=== PATIENT | male | born 2000 | race American Indian/Alaskan Native ===

== ENCOUNTER 2020-09-27 17:28 | Emergency (ER) | payer MEDICAID ==
[2020-09-27 20:11] VITALS: BP 130/69
[2020-09-27] MEDS ORDERED: TETANUS,DIPH,PERTUSS(ACELL) VACCINE 0.5 ML SYRINGE IM ONE (20:36)
--- NOTE | 2020-09-27 22:00 | Emergency Department Report ---
ED Lower Extremity HPI - General Chief Complaint: Extremity Injury, Lower Stated Complaint: WORK INJURY/RT BIG TOE Time Seen by Provider: 09/27/20 20:36 Source: patient Mode of arrival: Ambulatory Limitations: No Limitations - History of Present Illness Initial Comments: Patient is a 19-year-old male who presents emergency room complaints of stepping on a nail to his right great toe that occurred earlier today. Patient states that he was wearing shoes. States it did puncture but did not get stuck in the toe. He is unsure of his last tetanus immunization. He is ambulatory. He denies any numbness or weakness. He states initially there was a very small amount of bleeding but it resolved. Past medical history of asthma. No allergies to medications. - Related Data Previous Rx's Medication Instructions Recorded Last Taken Type Neomycin/Bacitracin/Polymyxinb 1 applicatio TP BID #14 oint...g. 09/27/20 Unknown Rx [Triple Antibiotic Ointment] cephALEXin [Keflex] 500 mg PO QID 7 Days #28 cap 09/27/20 Unknown Rx Allergies Allergy/AdvReac Type Severity Reaction Status Date / Time No Known Allergies Allergy Verified 09/27/20 23:10 ED Review of Systems ROS: Stated complaint: WORK INJURY/RT BIG TOE Other details as noted in HPI Comment: All other systems reviewed and negative ED Past Medical Hx - Past Medical History Previous Medical History?: No - Medications Home Medications: Home Medications Medication Instructions Recorded Confirmed Last Taken Type Neomycin/Bacitracin/Polymyxinb 1 applicatio TP BID #14 oint...g. 09/27/20 Unknown Rx [Triple Antibiotic Ointment] cephALEXin [Keflex] 500 mg PO QID 7 Days #28 cap 09/27/20 Unknown Rx ED Physical Exam - General Limitations: No Limitations General appearance: alert, in no apparent distress - Head Head exam: Present: atraumatic, normocephalic - Eye Eye exam: Present: normal appearance - ENT ENT exam: Present: mucous membranes moist - Respiratory Respiratory exam: Absent: respiratory distress, accessory muscle use - Neurological Exam Neurological exam: Present: alert, oriented X3 - Psychiatric Psychiatric exam: Present: normal affect, normal mood - Skin Skin exam: Present: warm, dry, other (small 0.3 cm puncture wound present to the plantar surface of the right big toe, mild ttp, no bleeding, no signs of infection, FROM of the RLE, neurovascuarly intact) ED Course Vital Signs 09/27/20 09/27/20 19:42 23:30 Temperature 98.3 F Pulse Rate 68 61 Respiratory 16 15 Rate Blood Pressure 130/69 O2 Sat by Pulse 100 98 Oximetry ED Lower Extremity MDM - Radiology Data Radiology results: report reviewed Ordering Physician: SHAKIR QUINTANILLA Date of Service: 09/27/20 Procedure(s): XR toe(s) 2+V RT Accession Number(s): [id number] cc: SHAKIR QUINTANILLA Fluoro Time In Minutes: RIGHT TOE(S) 3 VIEW(S) INDICATION / CLINICAL INFORMATION: MAIN stepped on the nail dictated. COMPARISON: None available. FINDINGS: BONES / JOINT(S): No acute fracture or subluxation. No significant arthritis. SOFT TISSUES: Soft tissue swelling and edema noted over the plantar surface of the great toe distally. No radiopaque retained foreign bodies are noted. ADDITIONAL FINDINGS: None. Signer Name: Sandra Martinez MD Signed: 09/27/2020 10:28 PM Workstation Name: [id number] Transcribed By: Dictated By: SANDRA MARTINEZ Electronically Authenticated By: SANDRA MARTINEZ Signed Date/Time: 09/27/202227 DD/ 25 TD/TT: Print - Medical Decision Making Patient is a 19-year-old male who presents emergency room complaints of stepping on a nail to his right great toe that occurred earlier today. Patient states that he was wearing shoes. States it did puncture but did not get stuck in the toe. He is unsure of his last tetanus immunization. He is ambulatory. He denies any numbness or weakness. He states initially there was a very small amount of bleeding but it resolved. Past medical history of asthma. No allergies to medications. Vitals are stable. On exam:small 0.3 cm puncture wound present to the plantar surface of the right big toe, mild ttp, no bleeding, no signs of infection, FROM of the RLE, neurovascuarly intact. Puncture wound appears clean, dry, intact, no signs of infection at this time, no bleeding. X-ray right big toe: BONES / JOINT(S): No acute fracture or subluxation. No significant arthritis. SOFT TISSUES: Soft tissue swelling and edema noted over the plantar surface of the great toe distally. No radiopaque retained foreign bodies are noted. ADDITIONAL FINDINGS: None. Discussed all results with patient answered questions. Patient given Tdap. Patient given prescription for Keflex and triple antibiotic ointment. Advised patient Please use medication as prescribed. Please keep area clean, dry, covered. Wash with antibacterial soap and water and pat dry. Follow-up with a primary care doctor for reexamination. Return to emergency room immediately for any new or worsening symptoms. Critical care attestation.: If time is entered above; I have spent that time in minutes in the direct care of this critically ill patient, excluding procedure time. ED Disposition Clinical Impression: Puncture wound of right great toe w/o foreign body w/o damage to nail Qualifiers: Encounter type: initial encounter Qualified Code(s): S91.131A - Puncture wound without foreign body of right great toe without damage to nail, initial encounter Disposition: - TO HOME OR SELFCARE Is pt being admited?: No Does the pt Need Aspirin: No Condition: Stable Instructions: Puncture Wound Additional Instructions: Please use medication as prescribed. Please keep area clean, dry, covered. Wash with antibacterial soap and water and pat dry. Follow-up with a primary care doctor for reexamination. Return to emergency room immediately for any new or worsening symptoms. Prescriptions: cephALEXin [Keflex] 500 mg PO QID 7 Days #28 cap Neomycin/Bacitracin/Polymyxinb [Triple Antibiotic Ointment] 1 applicatio TP BID #14 oint...g. Referrals: PRIMARY CAREMD [Primary Care Provider] - 3-5 Days Time of Disposition: 22:48 Print Language: PERUVIAN
--- NOTE | 2020-09-27 22:32 | XRay Report ---
RIGHT TOE(S) 3 VIEW(S) INDICATION / CLINICAL INFORMATION: MAIN stepped on the nail dictated. COMPARISON: None available. FINDINGS: BONES / JOINT(S): No acute fracture or subluxation. No significant arthritis. SOFT TISSUES: Soft tissue swelling and edema noted over the plantar surface of the great toe distally . No radiopaque retained foreign bodies are noted. ADDITIONAL FINDINGS: None. Signer Name: Pablo Albrecht MD Signed: 09/27/2020 10:28 PM Workstation Name: [id number]
== END 2020-09-27 23:30 | disposition home or self-care (01) ==
LOC: ED 17:28
DX: S91.131A Puncture wound without foreign body of right great toe without damage to nail, initial encounter (principal); Z79.899 Other long term (current) drug therapy; W22.8XXA Striking against or struck by other objects, initial encounter; Y93.89 Activity, other specified; Y92.89 Other specified places as the place of occurrence of the external cause; Y99.8 Other external cause status
CPT/HCPCS: 90471; 90715; 99283